=== PATIENT | female | born 1995 | race Caucasian/White ===

== ENCOUNTER 2019-03-26 01:24 | Emergency (ER) | payer OTHER ==
[~2019-03-26] VITALS: Ht 152.4 cm; Wt 50.7 kg
[~2019-03-26 01:24] MED LIST: CEPH-443 PO; IBUP-1542 PO
[2019-03-26 01:35] VITALS: Ht 152.4 cm; Wt 50.7 kg
[2019-03-26] MEDS ORDERED: KETOROLAC 15 MG INJ IV STA ×2 (01:49)
[2019-03-26] MEDS ORDERED: SOD CHLORIDE 0.9% 1,000 ML IV STA (01:49)
[2019-03-26] MEDS ORDERED: LORAZEPAM 2 MG INJ IV ONE (02:00)
[2019-03-26] MEDS ORDERED: CEFTRIAXONE 1 GM/50 ML (PMX) 50 ML IVPB ONE (03:30)
[2019-03-26] MEDS ORDERED: CEPHALEXIN 500 MG CAP PO ONE (03:30)
[2019-03-26 04:03] VITALS: BP 102/60; PULSE 72; RESP 16
== END 2019-03-26 04:04 | disposition home or self-care (01) ==
LOC: E/R 01:24
DX: N39.0 Urinary tract infection, site not specified (principal); F41.9 Anxiety disorder, unspecified; E86.0 Dehydration
CPT/HCPCS: 36415; 80053; 81001; 83690; 84703; 85025; 96374; 96375; 99284; J0696; J1885; J2060; J7030